=== PATIENT | male | born 1930 | race Caucasian/White ===

== ENCOUNTER 2018-08-16 09:28 | Inpatient (IN) | payer MEDICARE, BC ==
[2018-08-16 10:22] LABS: URINE APPEARANCE CLEAR; URINE BILIRUBIN NEGATIVE (NEGATIVE); URINE BLOOD TRACE-I (NEGATIVE); URINE COLOR YELLOW; URINE GLUCOSE (UA) NEGATIVE (NEGATIVE); URINE KETONE NEGATIVE (NEGATIVE); URINE LEUKOCYTE ESTERASE SMALL (NEGATIVE); URINE NITRITE NEGATIVE (NEGATIVE); URINE PROTEIN NEGATIVE (NEGATIVE); URINE UROBILINOGEN 0.2 E.U./dL (0.20 - 1.00)
[2018-08-16 10:23] LABS: HEMATOCRIT 49.3 % (42.0-52.0); HEMOGLOBIN 15.8 gm/dl (14.0-18.0); MEAN CELL VOLUME 91.1 fl (81-97); MEAN CORPUSCULAR HEMOGLOBIN 29.2 pg (27-33); MEAN PLATELET VOLUME 10.9 fl (7.4-10.4); PLATELET COUNT 311 K/uL (130-400); RED BLOOD COUNT 5.41 M/uL (4.40-5.70); RED CELL DISTRIBUTION WIDTH 13.6 % (11.5-14.5); WHITE BLOOD COUNT W/O DIFF 11.3 K/uL (4.2-12.2)
[2018-08-16 10:35] LABS: BLOOD UREA NITROGEN 15 mg/dL (8-23); CREATININE 1.2 mg/dL (0.7-1.2); EST GLOMERULAR FILTRATION RATE > 60 mL/min
[2018-08-16 10:36] LABS: TOTAL PROTEIN 7.4 g/dL (6.6-8.7)
[2018-08-16 10:38] LABS: GLUCOSE,RANDOM 157 mg/dL (74-109)
[2018-08-16 10:39] LABS: URINE BACTERIA 2+; URINE EPITHELIAL CELLS 0 - 2 (FEW); URINE MUCUS LIGHT
[2018-08-16 10:40] LABS: ALT/SGPT < 5 U/L (<41); AST/SGOT 16 U/L (10.0-50.0)
[2018-08-16 10:41] LABS: ALB/GLOB RATIO 1.4 (1.1-1.8); ALBUMIN 4.3 g/dL (4.0-5.0); ALKALINE PHOSPHATASE 100 U/L (40-129)
[2018-08-16 10:55] LABS: THYROID STIMULATING HORMONE 0.59 uIU/mL (0.270-4.20)
[2018-08-16 11:02] LABS: DIGOXIN 0.6 ng/mL (0.8-2.0)
--- NOTE | 2018-08-16 11:09 | Emergency Department Record ---
History of Present Illness - General Chief Complaint: Syncope Stated Complaint: SYNCOPE Time Seen by Provider: 08/16/18 09:33 Source: Patient, EMS Mode of Arrival: EMS Limitations: Altered mental status - History of Present Illness Initial Comments: pt became unresponsive for approx 45 secs after eating and appeared to not be breathing. he then aroused and apeeared normal. no postictal period. pt has no complaints MD Complaint: Loss of consciousness Onset/Timin -: Minutes(s) Prodromal Symptoms: None Description of Event: Focal shaking, Lost pulse, Stopped breathing Duration of Episode: 45 -: Second(s) Injuries Sustained Associated with Event: None Current Symptoms: Abdominal pain, Weakness History: Previous syncopal episode Treatments Prior to Arrival: IV fluids - Mary Coma Scale Eye Response: (4) Open spontaneously Motor Response: (6) Obeys commands Verbal Response: (5) Oriented Mary Total: 15 - Related Data Home Medications Medication Instructions Recorded Confirmed Last Taken Acetaminophen [Tylenol] 325 mg PO QID PRN 08/16/18 08/16/18 2 Days Ago ~08/14/18 Apixaban [Eliquis] 2.5 mg PO BID 08/16/18 08/16/18 1 Day Ago ~08/15/18 Aspirin [Aspirin EC] 81 mg PO DAILY 08/16/18 08/16/18 1 Day Ago ~08/15/18 Calcium Carbonate [[id number]] 500 mg PO QID 08/16/18 08/16/18 1 Day Ago ~08/15/18 Carbidopa/Levodopa [Carbidopa-Levo 2 tab PO QID 08/16/18 08/16/18 1 Day Ago 25-100 mg Odt] ~08/15/18 Carbidopa/Levodopa [Sinemet Cr 1 each PO QPM 08/16/18 08/16/18 1 Day Ago 50-200 Tablet] ~08/15/18 Chlorhexidine Gluconate [Peridex] 480 ml MM BID 08/16/18 08/16/18 1 Day Ago ~08/15/18 Cholecalciferol (Vitamin D3) 2,000 unit PO DAILY 08/16/18 08/16/18 1 Day Ago [Vitamin D3] ~08/15/18 Digoxin 125 mcg PO DAILY 08/16/18 08/16/18 1 Day Ago ~08/15/18 Finasteride [Proscar] 5 mg PO DAILY 08/16/18 08/16/18 1 Day Ago ~08/15/18 Gnp Dairy 3000 3,000 unit PO QHS PRN 08/16/18 Unknown Guaifenesin/Dextromethorphan 118 ml PO QID PRN 08/16/18 08/16/18 Unknown [Robafen Dm Cough Liquid] Guaifenesin/Dextromethorphan 237 ml PO QID PRN 08/16/18 08/16/18 Unknown [Robitussin Cough-Chest Dm Liq] Hydrocortisone [Cortisone] 28 gm TP BID PRN 08/16/18 08/16/18 Unknown Hydroxyzine HCl 25 mg PO TID PRN 08/16/18 08/16/18 Unknown Lactobacillus Acidophilus 1 each PO BID 08/16/18 08/16/18 1 Day Ago [Acidophilus] ~08/15/18 Levothyroxine Sodium [Synthroid] 1.5 tab PO DAILY 08/16/18 08/16/18 2 Days Ago ~08/14/18 Levothyroxine Sodium [Synthroid] 175 mcg PO DAILY 08/16/18 08/16/18 1 Day Ago ~08/15/18 Loperamide HCl [Immodium] 2 mg PO QID PRN 08/16/18 08/16/18 Unknown Loperamide HCl [Loperamide] 2 mg PO QID PRN 08/16/18 08/16/18 1 Day Ago ~08/15/18 Lubiprostone [Amitiza] 8 mcg PO BID 08/16/18 08/16/18 1 Day Ago ~08/15/18 Magnesium Citrate [Citrate of 296 ml PO NOW 08/16/18 08/16/18 Unknown Magnesia] Magnesium Oxide [Magnesium] 250 mg PO DAILY 08/16/18 08/16/18 1 Day Ago ~08/15/18 Mirtazapine 15 mg PO QHS 08/16/18 08/16/18 1 Day Ago ~08/15/18 Nystatin [Nystop] 60 gm TP BID 08/16/18 08/16/18 1 Day Ago ~08/15/18 Oxymetazoline HCl [Nasal [place]] 30 ml NS BID PRN 08/16/18 08/16/18 1 Day Ago ~08/15/18 Petrolatum,White [Remedy with 113 gm TP DAILY 08/16/18 08/16/18 1 Day Ago Phytoplex Z-Guard] ~08/15/18 Polyethylene Glycol 3350 [Miralax] 1 packet PO DAILY 08/16/18 08/16/18 1 Day Ago ~08/15/18 Polyethylene Glycol 3350 [Miralax] 17 gm PO DAILY PRN 08/16/18 08/16/18 Unknown Potassium Chloride [Klor-Con] 10 meq PO DAILY 08/16/18 08/16/18 1 Day Ago ~08/15/18 Psyllium Husk (with Sugar) 3.4 gm PO DAILY 08/16/18 08/16/18 1 Day Ago [Metamucil Packet] ~08/15/18 Selenium Sulfide 180 ml TP DAILY PRN 08/16/18 08/16/18 Unknown Simethicone [Gas Relief] 80 mg PO QID 08/16/18 08/16/18 1 Day Ago ~08/15/18 Tizanidine HCl [Zanaflex] 2 mg PO QID PRN 08/16/18 08/16/18 1 Day Ago ~08/15/18 Zinc Oxide/Petrolatum,White 99 gm TP BID 08/16/18 08/16/18 1 Day Ago [[place] Moist Barrier Cream] ~08/15/18 Allergies Allergy/AdvReac Type Severity Reaction Status Date / Time No Known Drug Allergies Allergy Verified 11/10/14 21:52 Travel Screening - Travel/Exposure Within Last 30 Days Have you traveled within the last 30 days?: No - Travel/Exposure Within Last Year Have you traveled outside the [place] in the last year?: No - Additonal Travel Details Have you been exposed to anyone with a communicable illness?: No - Travel Symptoms Symptom Screening: None Review of Systems Reviewed: No additional complaints except as noted below Constitutional: Reports: As per HPI. Denies: Chills, Fever, Malaise, Night sweats, Weakness, Weight change Eyes: Reports: As per HPI. Denies: Eye discharge, Eye pain, Photophobia, Vision change ENT: Reports: As per HPI. Denies: Congestion, Dental pain, Ear pain, Epistaxis , Hearing loss, Throat pain Respiratory: Reports: As per HPI. Denies: Cough, Dyspnea, Hemoptysis, Stridor, Wheezes Cardiovascular: Reports: As per HPI. Denies: Arrhythmia, Chest pain, Dyspnea on exertion, Edema, Murmurs, Orthopnea, Palpitations, Paroxysmal nocturnal dyspnea, Rheumatic Fever, Syncope Endocrine: Reports: As per HPI. Denies: Fatigue, Heat or cold intolerance, Polydipsia, Polyuria Gastrointestinal: Reports: As per HPI. Denies: Abdominal pain, Constipation, Diarrhea, Hematemesis, Hematochezia, Melena, Nausea, Vomiting Genitourinary: Reports: As per HPI. Denies: Dysuria, Frequency, Hematuria, Incontinence, Retention, Testicular pain, Testicular mass, Urgency Musculoskeletal: Reports: As per HPI. Denies: Arthralgia, Back pain, Gout, Joint swelling, Myalgia, Neck pain Skin: Reports: As per HPI. Denies: Bruising, Change in color, Change in hair/ nails, Lesions, Pruritus, Rash Neurological: Reports: As per HPI. Denies: Abnormal gait, Confusion, Headache, Numbness, Paresthesias, Seizure, Tingling, Tremors, Vertigo, Weakness Psychiatric: Reports: As per HPI. Denies: Anxiety, Auditory hallucinations, Depression, Homicidal thoughts, Suicidal thoughts, Visual hallucinations Hematological/Lymphatic: Reports: As per HPI. 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 - ENDOCRINE Hx Endocrine Disorders: Yes Hx Thyroid Disease: Yes (thyroidectomy) - MUSCULOSKELETAL Hx Musculoskeletal Disorders: No Family Medical History Any Significant Family History?: Yes Hx Cancer: Father, Mother, Grandparents Hx Heart Disease: Mother Hx Stroke: Mother Physical Exam - General General Appearance: Alert, Oriented x3, Cooperative, Mild distress - Head Head exam: Normal inspection - Eye Eye exam: Normal appearance, PERRL, EOMI Pupils: Normal accommodation - ENT ENT exam: Normal exam, Mucous membranes moist, Normal external ear exam, Normal orophraynx Ear exam: Normal external inspection. negative: External canal tenderness Nasal Exam: Normal inspection. negative: Discharge, Sinus tenderness Mouth exam: Normal external inspection, Tongue normal Teeth exam: Normal inspection. negative: Dental caries Throat exam: Normal inspection. negative: Tonsillar erythema, Tonsillar exudate - Neck Neck exam: Normal inspection, Full ROM. negative: Tenderness - Respiratory Respiratory exam: Normal lung sounds bilaterally. negative: Respiratory distress - Cardiovascular Cardiovascular Exam: Regular rate, Normal rhythm, Normal heart sounds - GI/Abdominal GI/Abdominal exam: Soft, Normal bowel sounds. negative: Tenderness - Rectal Rectal exam: Deferred - exam: Deferred - Extremities Extremities exam: Normal inspection, Full ROM, Normal capillary refill. negative: Tenderness - Back Back exam: Reports: Normal inspection, Full ROM. 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 negative: Normal gait - Psychiatric Psychiatric exam: Normal affect, Normal mood - Skin Skin exam: Dry, Intact, Normal color, Warm Course Vital Signs 08/16/18 09:33 Temperature 97.7 F Pulse Rate 77 Respiratory 18 Rate Blood Pressure 112/71 Pulse Ox 96 Medical Decision Making - Lab Data Result diagrams: 08/16/18 09:10 08/16/18 09:10 Lab Results 08/16/18 08/16/18 08/16/18 Range/Units 09:10 09:10 09:10 WBC 11.3 (4.2-12.2) K/uL RBC 5.41 (4.40-5.70) M/uL Hgb 15.8 (14.0-18.0) gm/dl Hct 49.3 (42.0-52.0) % MCV 91.1 (81-97) fl MCH 29.2 (27-33) pg MCHC 32.0 (32-36) g/dl RDW 13.6 (11.5-14.5) % Plt Count 311 (130-400) K/uL MPV 10.9 H (7.4-10.4) fl Eosinophils % Not Reportable Basophils % Not Reportable Sodium 142 (136-145) mmol/L Potassium 4.4 (3.4-4.5) mmol/L Chloride 96 L (98-107) mmol/L Carbon Dioxide 34.0 H (22-29) mmol/L Anion Gap 12.0 (7-16) BUN 15 (8-23) mg/dL Creatinine 1.2 (0.7-1.2) mg/dL Estimated GFR > 60 mL/min Random Glucose 157 H (74-109) mg/dL Calcium 8.2 L (8.8-10.2) mg/dL Total Bilirubin 0.60 (0.2-1.0) mg/dL AST 16 (10.0-50.0) U/L ALT < 5 (<41) U/L Alkaline Phosphatase 100 (40-129) U/L Total Protein 7.4 (6.6-8.7) g/dL Albumin 4.3 (4.0-5.0) g/dL Globulin 3.1 (1.4-4.8) gm/dL Albumin/Globulin Ratio 1.4 (1.1-1.8) TSH 0.59 (0.270-4.20) uIU/mL Urine Color Urine Appearance Urine pH (5.0-8.0) Ur Specific [place] (1.002-1.030) Urine Protein (NEGATIVE) Urine Glucose (UA) (NEGATIVE) Urine Ketones (NEGATIVE) Urine Blood (NEGATIVE) Urine Nitrite (NEGATIVE) Urine Bilirubin (NEGATIVE) Urine Urobilinogen (0.20 - 1.00) E.U./dL Ur Leukocyte Esterase (NEGATIVE) Urine RBC (NONE SEEN) Urine WBC (0-2/hpf) Ur Epithelial Cells (FEW) Urine Bacteria Urine Mucus Digoxin 0.6 L (0.8-2.0) ng/mL 08/16/18 Range/Units Unknown WBC (4.2-12.2) K/uL RBC (4.40-5.70) M/uL Hgb (14.0-18.0) gm/dl Hct (42.0-52.0) % MCV (81-97) fl MCH (27-33) pg MCHC (32-36) g/dl RDW (11.5-14.5) % Plt Count (130-400) K/uL MPV (7.4-10.4) fl Eosinophils % Basophils % Sodium (136-145) mmol/L Potassium (3.4-4.5) mmol/L Chloride (98-107) mmol/L Carbon Dioxide (22-29) mmol/L Anion Gap (7-16) BUN (8-23) mg/dL Creatinine (0.7-1.2) mg/dL Estimated GFR mL/min Random Glucose (74-109) mg/dL Calcium (8.8-10.2) mg/dL Total Bilirubin (0.2-1.0) mg/dL AST (10.0-50.0) U/L ALT (<41) U/L Alkaline Phosphatase (40-129) U/L Total Protein (6.6-8.7) g/dL Albumin (4.0-5.0) g/dL Globulin (1.4-4.8) gm/dL Albumin/Globulin Ratio (1.1-1.8) TSH (0.270-4.20) uIU/mL Urine Color Yellow Urine Appearance Clear Urine pH 6.0 (5.0-8.0) Ur Specific [place] 1.015 (1.002-1.030) Urine Protein Negative (NEGATIVE) Urine Glucose (UA) Negative (NEGATIVE) Urine Ketones Negative (NEGATIVE) Urine Blood Trace-i (NEGATIVE) Urine Nitrite Negative (NEGATIVE) Urine Bilirubin Negative (NEGATIVE) Urine Urobilinogen 0.2 (0.20 - 1.00) E.U./dL Ur Leukocyte Esterase Small H (NEGATIVE) Urine RBC 3 - 6 (NONE SEEN) Urine WBC 10 - 15 (0-2/hpf) Ur Epithelial Cells 0 - 2 (FEW) Urine Bacteria 2+ Urine Mucus Light Digoxin (0.8-2.0) ng/mL Disposition Disposition: Admit Clinical Impression: Syncope Qualifiers: Syncope type: unspecified Qualified Code(s): R55 - Syncope and collapse Disposition: Still a Patient at [facility] Decision to Admit: Admit from ER Decision to Admit Date: 08/16/18 Decision to Admit Time: 14:36 Forms: Patient Portal Access Quality - Quality Measures Quality Measures: N/A - Blood Pressure Screening Does Patient Have Any of the Following: No Blood Pressure Classification: Normal BP Reading Systolic Measurement: 112 Diastolic Measurement: 71 Screening for High Blood Pressure: < Normal BP, F/U Not Required > [G8783]
[2018-08-16] MEDS ORDERED: MAGNESIUM CITRATE 296 ML BTL PO SCH (15:05)
[2018-08-16] MEDS ORDERED: LOPERAMIDE 2 MG CAPSULE PO PRN ×2 (15:05)
[2018-08-16] MEDS ORDERED: HYDROXYZINE HCL 25 MG PO PRN (15:05)
[2018-08-16] MEDS ORDERED: ACETAMINOPHEN 325 MG TAB PO PRN ×2 (15:54→16:00)
[2018-08-16] MEDS: TIZANIDINE HCL 4 MG TABLET PO PRN ×2 (16:41→22:19)
[2018-08-16] MEDS: SIMETHICONE 80 MG TAB.CHEW PO SCH ×2 (18:38→21:49)
[2018-08-16] MEDS: ACETAMINOPHEN 500 MG TABLET PO PRN (18:39)
[2018-08-16] MEDS: APIXABAN 2.5MG TABLET PO SCH (21:48)
[2018-08-16] MEDS: MIRTAZAPINE 15 MG TABLET PO SCH (21:49)
[2018-08-16] MEDS ORDERED: NYSTATIN 15 GM POWDER TP SCH (22:00)
[2018-08-16] MEDS: Non-Formulary MISC (Carbidopa/Levodopa [Sinemet Cr 50-200 Tablet] 1 EACH) PO SCH (22:43)
[2018-08-16] MEDS ORDERED: CARBIDOPA PO SCH (23:00)
[2018-08-16] MEDS: [UNRECOGNIZED DRUG - OTHER] TP SCH (23:00)
[2018-08-16] MEDS ORDERED: LEVODOPA PO SCH (23:00)
[2018-08-16] MEDS: ZINC OXIDE TP SCH (23:00)
[2018-08-16] MEDS: LUBIPROSTONE 8 MCG PO SCH (23:00)
[2018-08-17] MEDS: ACETAMINOPHEN 500 MG TABLET PO PRN ×3 (02:14→21:46)
[2018-08-17 02:23] LABS: BASO % 0.3 % (0-6); EOS % 2.3 % (0-6); GRAN % 79.7 % (47-80); HEMATOCRIT 44.5 % (42.0-52.0); HEMOGLOBIN 14.2 gm/dl (14.0-18.0); LYMPH % 7.7 % (16-45); MEAN CELL VOLUME 91.2 fl (81-97); MEAN CORPUSCULAR HEMOGLOBIN 29.1 pg (27-33); MEAN CORPUSCULAR HGB CONC 31.9 g/dl (32-36); PLATELET COUNT 265 K/uL (130-400); RED BLOOD COUNT 4.88 M/uL (4.40-5.70); RED CELL DISTRIBUTION WIDTH 13.6 % (11.5-14.5); WHITE BLOOD COUNT W/O DIFF 10.8 K/uL (4.2-12.2)
[2018-08-17 02:48] LABS: ALB/GLOB RATIO 1.4 (1.1-1.8); BLOOD UREA NITROGEN 22 mg/dL (8-23); CREATININE 1.2 mg/dL (0.7-1.2); EST GLOMERULAR FILTRATION RATE > 60 mL/min; GLUCOSE,RANDOM 127 mg/dL (74-109); TOTAL PROTEIN 6.9 g/dL (6.6-8.7)
[2018-08-17 02:49] LABS: ALKALINE PHOSPHATASE 90 U/L (40-129); ALT/SGPT < 5 U/L (<41); AST/SGOT 15 U/L (10.0-50.0)
--- NOTE | 2018-08-17 07:32 | CT SCAN REPORT ---
EXAM: CT SCAN OF THE BRAIN WITHOUT CONTRAST HISTORY: SYNCOPE. UNRESPONSIVE EPISODE TODAY AFTER BREAKFAST. SIMILAR SYMPTOMS SIX DAYS AGO. HISTORY OF PREVIOUS INTRACRANIAL BLEED IN 2009. TECHNIQUE: Standard CT imaging of the brain was performed without contrast. Comparison: 11/08/13. Encounter: Not applicable. FINDINGS: There is moderate generalized atrophy. The ventricles and subarachnoid spaces are otherwise normal. A focal area of encephalomalacia is noted within the superior right frontal parietal region and is unchanged. Chronic small vessel ischemic changes are present within the periventricular and subcortical white matter of both cerebral hemispheres. There is no mass, mass effect, intracranial hemorrhage, visible acute infarct, or abnormal extraaxial fluid. The skull is intact. The orbits, sinuses, and mastoids are normal. IMPRESSION: 1. STABLE HEAD CT WITH NO ACUTE INTRACRANIAL ABNORMALITY. 2. MODERATE ATROPHY AND CHRONIC SMALL VESSEL ISCHEMIC CHANGES. 3. 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 JOB NUMBER: [id number] MTDD
[2018-08-17] MEDS ORDERED: SODIUM CHLORIDE NASAL SPRAY PRN (08:24)
[2018-08-17] MEDS ORDERED: SODIUM CHLORIDE NASAL SPRAY ONE (08:27)
[2018-08-17] MEDS ORDERED: GUAIFENESIN/D-METH. 10 ML UDC PO PRN (09:30)
[2018-08-17] MEDS ORDERED: HYDROCORTISONE HC CR 28.35 GM TUBE TOP PRN (09:30)
[2018-08-17] MEDS: ASPIRIN 81 MG TABEC PO SCH (09:44)
[2018-08-17] MEDS: APIXABAN 2.5MG TABLET PO SCH ×2 (09:44→21:47)
[2018-08-17] MEDS: POTASSIUM CHLORIDE 10 MEQ TAB PO SCH ×2 (09:45→17:03)
[2018-08-17] MEDS: Non-Formulary MISC (Finasteride [Proscar] 5 MG) PO SCH (09:45)
[2018-08-17] MEDS: DIGOXIN 125 MCG TABLET PO SCH (09:46)
[2018-08-17] MEDS: LUBIPROSTONE 8 MCG PO SCH ×2 (09:47→21:50)
[2018-08-17] MEDS: POLYETHYLENE GLY 17 GM PACKET PO SCH (09:47)
[2018-08-17] MEDS: MAGNESIUM OXIDE 250 MG PO SCH (09:52)
[2018-08-17] MEDS: TIZANIDINE HCL 4 MG TABLET PO PRN ×2 (09:53→21:48)
[2018-08-17] MEDS ORDERED: LEVOTHYROXINE 175 MCG PO ONE (10:00)
[2018-08-17] MEDS: CARBIDOPA/LEVODOPA 25MG/100MG TABLET PO SCH ×4 (10:45→21:46)
[2018-08-17] MEDS: SIMETHICONE 80 MG TAB.CHEW PO SCH ×4 (10:45→21:47)
--- NOTE | 2018-08-17 11:27 | History & Physical ---
History of Present Illness - Date of Service Date of Service for History & Physical: 08/17/18 - History of Present Illness Admitting Diagnosis: syncope History of Present Illness: 88 year old male presented to ED after a syncopal episode that occurred at the [facility] where he currently resides. 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 Patient reports he had finished eating breakfast and was being wheeled to the activity room when he lost consciousness. Staff report patient was also not breathing during episode, and state it lasted about 45 sec - 1 min. The episode was witnessed and staff deny any seizure-like activity, incontinence, or a post-ictal state afterward. Patient denied any feelings of shortness of breath, chest pain, dizziness, or generalized feelings of being unwell prior to episode. Patient had one previous episode similar to this last Friday. He was taken to [facility] after that event and was found to have a UTI. Patient was started on Cipro at that time. Patient's past medical history includes Parkinson's, a-fib, CVA, and thyroidectomy. Neurologist at [facility] [place] at [facility] PCP: Fernando Kearney ED Course: VS: Temp 97.7F, HR 77, RR 18, BP 112/71, Pulse ox 96% CBC WNL, CMP and TSH WNL Head CT negative for acute process UA had small leuks, will continue Cipro 08/17/18: Patient A&O x 4, resting comfortably in bed. Patient has no complaints this morning, states he is feeling at his baseline. Will continue to treat with Cipro for UTI. Echo ordered, last echo reported in 2001. Cardiology consult also placed to further evaluate syncopal episodes. If workup remains negative, will instruct patient to follow-up with neurologist for further testing. Travel Screening - Travel/Exposure Within Last 30 Days Have you traveled within the last 30 days?: No - Travel/Exposure Within Last Year Have you traveled outside the [place] in the last year?: No - Additonal Travel Details Have you been exposed to anyone with a communicable illness?: No - Travel Symptoms Symptom Screening: None Review of Systems Constitutional: Reports: As per HPI. Denies: Chills, Fever, Malaise, Night sweats, Weakness, Weight change Eyes: Reports: As per HPI. Denies: Eye discharge, Eye pain, Photophobia, Vision change ENT: Reports: As per HPI. Denies: Congestion, Dental pain, Ear pain, Epistaxis , Hearing loss, Throat pain Respiratory: Reports: As per HPI. Denies: Cough, Dyspnea, Hemoptysis, Stridor, Wheezes Cardiovascular: Reports: As per HPI. Denies: Arrhythmia, Chest pain, Dyspnea on exertion, Edema, Murmurs, Orthopnea, Palpitations, Paroxysmal nocturnal dyspnea, Rheumatic Fever, Syncope Endocrine: Reports: As per HPI. Denies: Fatigue, Heat or cold intolerance, Polydipsia, Polyuria Gastrointestinal: Reports: As per HPI. Denies: Abdominal pain, Constipation, Diarrhea, Hematemesis, Hematochezia, Melena, Nausea, Vomiting Genitourinary: Reports: As per HPI. Denies: Dysuria, Frequency, Hematuria, Incontinence, Retention, Testicular pain, Testicular mass, Urgency Musculoskeletal: Reports: As per HPI. Denies: Arthralgia, Back pain, Gout, Joint swelling, Myalgia, Neck pain Skin: Reports: As per HPI. Denies: Bruising, Change in color, Change in hair/ nails, Lesions, Pruritus, Rash Neurological: Reports: As per HPI. Denies: Abnormal gait, Confusion, Headache, Numbness, Paresthesias, Seizure, Tingling, Tremors, Vertigo, Weakness Psychiatric: Reports: As per HPI. Denies: Anxiety, Auditory hallucinations, Depression, Homicidal thoughts, Suicidal thoughts, Visual hallucinations Hematological/Lymphatic: Reports: As per HPI. Denies: Anemia, Blood Clots, Easy bleeding, Easy bruising, Swollen glands Past Medical History - SOCIAL HISTORY Smoking Status: Never smoker Alcohol Use: None Drug Use: None - RESPIRATORY Hx Respiratory Disorders: No - CARDIOVASCULAR Hx Cardio Disorders: Yes Hx Hypertension: Yes Hx Irregular Heartbeat: Yes Comment:: A-fib - NEURO Hx Neuro Disorders: Yes Hx CVA: Yes (Oct 2010) Hx Parkinson's Disease: Yes (2017) - GI Hx GI Disorders: No - Hx Genitourinary Disorders: Yes Hx Bladder Problem: Yes (Suprapubic catheter) Comment:: post CVA - ENDOCRINE Hx Endocrine Disorders: Yes Hx Thyroid Disease: Yes (thyroidectomy) - MUSCULOSKELETAL Hx Musculoskeletal Disorders: No - PSYCH Hx Psych Problems: No - HEMATOLOGY/ONCOLOGY Hx Hematology/Oncology Disorders: No Family Medical History Any Significant Family History?: Yes Hx Cancer: Father, Mother, Grandparents Hx Heart Disease: Mother Hx Stroke: Mother H&P Meds/Allergies - Allergies Allergies: Allergies Allergy/AdvReac Type Severity Reaction Status Date / Time No Known Drug Allergies Allergy Verified 11/10/14 21:52 - Home Medications Home Medications Medication Instructions Recorded Confirmed Last Taken Acetaminophen [Tylenol] 325 mg PO QID PRN 08/16/18 08/16/18 2 Days Ago ~08/14/18 Apixaban [Eliquis] 2.5 mg PO BID 08/16/18 08/16/18 1 Day Ago ~08/15/18 Aspirin [Aspirin EC] 81 mg PO DAILY 08/16/18 08/16/18 1 Day Ago ~08/15/18 Calcium Carbonate [Abfp-Mcx-450] 500 mg PO QID 08/16/18 08/16/18 1 Day Ago ~08/15/18 Carbidopa/Levodopa [Carbidopa-Levo 2 tab PO QID 08/16/18 08/16/18 1 Day Ago 25-100 mg Odt] ~08/15/18 Carbidopa/Levodopa [Sinemet Cr 1 each PO QPM 08/16/18 08/16/18 1 Day Ago 50-200 Tablet] ~08/15/18 Chlorhexidine Gluconate [Peridex] 480 ml MM BID 08/16/18 08/16/18 1 Day Ago ~08/15/18 Cholecalciferol (Vitamin D3) 2,000 unit PO DAILY 08/16/18 08/16/18 1 Day Ago [Vitamin D3] ~08/15/18 Digoxin 125 mcg PO DAILY 08/16/18 08/16/18 1 Day Ago ~08/15/18 Finasteride [Proscar] 5 mg PO DAILY 08/16/18 08/16/18 1 Day Ago ~08/15/18 Gnp Dairy 3000 3,000 unit PO QHS PRN 08/16/18 Unknown Guaifenesin/Dextromethorphan 118 ml PO QID PRN 08/16/18 08/16/18 Unknown [Robafen Dm Cough Liquid] Guaifenesin/Dextromethorphan 237 ml PO QID PRN 08/16/18 08/16/18 Unknown [Robitussin Cough-Chest Dm Liq] Hydrocortisone [Cortisone] 28 gm TP BID PRN 08/16/18 08/16/18 Unknown Hydroxyzine HCl 25 mg PO TID PRN 08/16/18 08/16/18 Unknown Lactobacillus Acidophilus 1 each PO BID 08/16/18 08/16/18 1 Day Ago [Acidophilus] ~08/15/18 Levothyroxine Sodium [Synthroid] 1.5 tab PO DAILY 08/16/18 08/16/18 2 Days Ago ~08/14/18 Levothyroxine Sodium [Synthroid] 175 mcg PO DAILY 08/16/18 08/16/18 1 Day Ago ~08/15/18 Loperamide HCl [Immodium] 2 mg PO QID PRN 08/16/18 08/16/18 Unknown Loperamide HCl [Loperamide] 2 mg PO QID PRN 08/16/18 08/16/18 1 Day Ago ~08/15/18 Lubiprostone [Amitiza] 8 mcg PO BID 08/16/18 08/16/18 1 Day Ago ~08/15/18 Magnesium Citrate [Citrate of 296 ml PO NOW 08/16/18 08/16/18 Unknown Magnesia] Magnesium Oxide [Magnesium] 250 mg PO DAILY 08/16/18 08/16/18 1 Day Ago ~08/15/18 Mirtazapine 15 mg PO QHS 08/16/18 08/16/18 1 Day Ago ~08/15/18 Nystatin [Nystop] 60 gm TP BID 08/16/18 08/16/18 1 Day Ago ~08/15/18 Oxymetazoline HCl [Nasal [place]] 30 ml NS BID PRN 08/16/18 08/16/18 1 Day Ago ~08/15/18 Petrolatum,White [Remedy with 113 gm TP DAILY 08/16/18 08/16/18 1 Day Ago Phytoplex Z-Guard] ~08/15/18 Polyethylene Glycol 3350 [Miralax] 1 packet PO DAILY 08/16/18 08/16/18 1 Day Ago ~08/15/18 Polyethylene Glycol 3350 [Miralax] 17 gm PO DAILY PRN 08/16/18 08/16/18 Unknown Potassium Chloride [Klor-Con] 10 meq PO DAILY 08/16/18 08/16/18 1 Day Ago ~08/15/18 Psyllium Husk (with Sugar) 3.4 gm PO DAILY 08/16/18 08/16/18 1 Day Ago [Metamucil Packet] ~08/15/18 Selenium Sulfide 180 ml TP DAILY PRN 08/16/18 08/16/18 Unknown Simethicone [Gas Relief] 80 mg PO QID 08/16/18 08/16/18 1 Day Ago ~08/15/18 Tizanidine HCl [Zanaflex] 2 mg PO QID PRN 08/16/18 08/16/18 1 Day Ago ~08/15/18 Zinc Oxide/Petrolatum,White 99 gm TP BID 08/16/18 08/16/18 1 Day Ago [Jacob Moist Barrier Cream] ~08/15/18 - Active Medications Active Medications: Current Medications Acetaminophen (Tylenol 500mg Tab) 1,000 mg PO Q6H PRN PRN Reason: PAIN - MILD(1-4)/FEVER Last Admin: 08/17/18 10:32 Dose: 1,000 mg Acetaminophen (Tylenol 325mg) 325 mg PO Q6H PRN PRN Reason: PAIN - MILD (1-4) Apixaban (Eliquis) 2.5 mg PO BID [facility] Last Admin: 08/17/18 09:44 Dose: 2.5 mg Aspirin (Ecotrin (Ec)) 81 mg PO DAILY [facility] Last Admin: 08/17/18 09:44 Dose: 81 mg Carbidopa/Levodopa (Sinemet) 2 each PO 0800,1200,1600,2000 [facility] Last Admin: 08/17/18 09:52 Dose: 2 each Digoxin (Lanoxin) 125 mcg PO DAILY [facility] Last Admin: 08/17/18 09:46 Dose: 125 mcg Guaifenesin (Robitussin Dm) 10 ml PO QID PRN PRN Reason: COUGH Hydrocortisone (Proctosol-Hc) 1 gm TOP BID PRN PRN Reason: DIAPER RASH Loperamide HCl (Immodium) 2 mg PO QID PRN PRN Reason: DIARRHEA Magnesium Citrate (Citrate Of Magnesia) 296 ml PO NOW [facility] Mirtazapine (Remeron) 15 mg PO QHS [facility] Last Admin: 08/16/18 21:49 Dose: 15 mg Non-Formulary Medication (Carbidopa/Levodopa [Sinemet Cr 50-200 Tablet]) 1 each PO QHS [facility] Last Admin: 08/16/18 22:43 Dose: 1 each Non-Formulary Medication (Finasteride [Proscar]) 5 mg PO DAILY [facility] Last Admin: 08/17/18 09:45 Dose: 5 mg Non-Formulary Medication (Hydroxyzine Hcl [Hydroxyzine Hcl]) 25 mg PO TID PRN PRN Reason: ANXIETY Non-Formulary Medication (Lubiprostone [Amitiza]) 8 mcg PO BID [facility] Last Admin: 08/17/18 09:47 Dose: 8 mcg Non-Formulary Medication (Zinc Oxide/Petrolatum,White [[place] Moist Barrier Cream]) 99 gm TP BID [facility] Nystatin (Nystop) 1 gm TP BID [facility] Patient Own Med: Levothyroxine 175 Mcg 1 each PO SuTuThSa [facility] Patient Own Med: Levothyroxine 175 Mcg 1.5 each PO MoWeFr [facility] Patient Own Med: Magnesium Oxide 250 Mg 1 each PO DAILY [facility] Last Admin: 08/17/18 09:52 Dose: 1 each Polyethylene Glycol (Miralax) 17 gm PO DAILY [facility] Last Admin: 08/17/18 09:47 Dose: 17 gm Potassium Chloride (Klor-Con) 10 meq PO 0800,1700 [facility] Last Admin: 08/17/18 09:45 Dose: 10 meq Simethicone (Mylicon) 80 mg PO QID [facility] Last Admin: 08/17/18 09:48 Dose: 80 mg Sodium Chloride ([place] Nasal) 0.5 ml NA Q2H PRN PRN Reason: DRY NASAL PASSAGE Tizanidine HCl (Tizanidine Hcl) 2 mg PO Q6H PRN PRN Reason: RESTLESSNESS Last Admin: 08/17/18 09:53 Dose: 2 mg Physical Exam - Vital Signs Vital Signs: Vital Signs - Last 24 Hrs Temp Pulse Pulse Resp BP Pulse Ox 08/17/18 09:00 97.9 F 93 H 18 152/82 96 08/17/18 05:00 97.9 F 79 20 132/92 93 L 08/16/18 20:15 90 08/16/18 19:57 97.6 F 103 H 20 140/89 94 L 08/16/18 18:12 94 H 95 H 18 08/16/18 17:05 98.8 F 94 H 18 164/101 98 08/16/18 14:50 97.9 F 95 H 18 162/94 96 08/16/18 14:38 94 H 20 174/105 97 08/16/18 13:31 89 18 151/97 97 08/16/18 11:51 89 22 137/83 97 - General General Appearance: Alert, Oriented x3, Cooperative, No acute distress Limitations: Altered mental status - Head Head exam: Normal inspection - Eye Eye exam: Normal appearance, PERRL, EOMI Pupils: Normal accommodation - ENT ENT exam: Normal exam, Mucous membranes moist, Normal external ear exam, Normal orophraynx Ear exam: Normal external inspection. negative: External canal tenderness Nasal Exam: Normal inspection. negative: Discharge, Sinus tenderness Mouth exam: Normal external inspection, Tongue normal Teeth exam: Normal inspection. negative: Dental caries Throat exam: Normal inspection. negative: Tonsillar erythema, Tonsillar exudate - Neck Neck exam: Normal inspection, Full ROM. negative: Tenderness - Respiratory Respiratory exam: Normal lung sounds bilaterally. negative: Respiratory distress - Cardiovascular Cardiovascular Exam: Regular rate, Normal heart sounds Peripheral Pulses: 2+: Radial (R), Radial (L), Dorsalis Pedis (R), Dorsalis Pedis (L) - GI/Abdominal GI/Abdominal exam: Soft, Normal bowel sounds. negative: Tenderness - Rectal Rectal exam: Deferred - exam: Deferred, Other (suprapubic catheter) - Extremities Extremities exam: Normal inspection, Full ROM, Normal capillary refill. negative: Tenderness - Back Back exam: Reports: Normal inspection, Full ROM. Denies: Muscle spasm, Rash noted, Tenderness - Neurological Neurological exam: Alert, Oriented X3, Other (wheelchair bound 2nd to parkinsons and CVA). negative: Normal gait - Psychiatric Psychiatric exam: Normal affect, Normal mood - Skin Skin exam: Dry, Intact, Normal color, Warm Results - Labs Result Diagrams: 08/17/18 02:18 08/17/18 02:18 Labs Last 24 Hours: Laboratory Results - last 24 hr 08/16/18 08/17/18 08/17/18 18:10 02:18 02:18 WBC 10.8 RBC 4.88 Hgb 14.2 Hct 44.5 MCV 91.2 MCH 29.1 MCHC 31.9 L RDW 13.6 Plt Count 265 MPV 10.0 Gran % 79.7 Lymphocytes % 7.7 L Monocytes % 10.0 H Eosinophils % 2.3 Basophils % 0.3 Sodium Potassium Chloride Carbon Dioxide Anion Gap BUN Creatinine Estimated GFR Random Glucose Calcium Total Bilirubin AST ALT Alkaline Phosphatase Troponin T < 0.010 < 0.010 Total Protein Albumin Globulin Albumin/Globulin Ratio 08/17/18 02:18 WBC RBC Hgb Hct MCV MCH MCHC RDW Plt Count MPV Gran % Lymphocytes % Monocytes % Eosinophils % Basophils % Sodium 141 Potassium 4.1 Chloride 98 Carbon Dioxide 29.0 Anion Gap 14.0 BUN 22 Creatinine 1.2 Estimated GFR > 60 Random Glucose 127 H Calcium 7.5 L Total Bilirubin 0.50 AST 15 ALT < 5 Alkaline Phosphatase 90 Troponin T Total Protein 6.9 Albumin 4.0 Globulin 2.9 Albumin/Globulin Ratio 1.4 VTE H&P Assessment - Risk for VTE Risk for VTE: Yes Risk Level: Moderate Risk Assessment Date: 08/17/18 Risk Assessment Time: 11:32 VTE Orders Placed or Will Be Placed: No VTE Reason for No Prophylaxis: Contraindicated (currently on Eliquis for a-fib) Plan - Inpatient Certification Inpatient Certification: Admit to inpatient care: Based on my medical assessment, after consideration of patient's risk factors (age, co-morbidities and patient presenting symptoms and acuity), I expect that this patient will remain in the hospital greater than or equal to two midnights and that the services needed warrant inpatient care because: Patient Risk Factors: [age, wheelchair bound, repeated syncope] Estimated length of stay: The patient may reasonably be expected to be discharged or transferred to a hospital within 24-72 hours after admission to [facility]. Services needed: [cardiac monitoring, cardiology consult, ECHO] Post hospital care (if known): [] I certify that my determination is in accordance with my understanding of Medicare requirements for reasonable and necessary inpatient services. 08/17/18 11:33 - Detailed Diagnosis and Plan (1) Syncope Current Visit: Yes Status: Acute Qualifiers: Syncope type: unspecified Qualified Code(s): R55 - Syncope and collapse Base Code: R55 - SYNCOPE AND COLLAPSE Comment: 08/17/18: Patient has had 2 syncopal episodes in the past week. Both episodes lasting about 1 minute, staff also reported patient had stopped breathing during episode. No seizure- like movements or activity, no post-ictal state -Head CT showed no acute changes -ECHO ordered, results pending -Cardiology consult -hall monitor -CBC and CMP WNL -UA positive for small leuks, was started on Cipro last Friday, will continue -Patient to follow-up with Neurology if all other testing is WNL (2) UTI (urinary tract infection) Current Visit: Yes Status: Acute Base Code: N39.0 - URINARY TRACT INFECTION , SITE NOT SPECIFIED Comment: 08/17/18: Was found to have catheter-associated UTI at [facility] last Friday and started on Cipro. -Small Leuks noted on UA -Will continue Cipro (3) A-fib Current Visit: Yes Status: Acute Base Code: I48.91 - UNSPECIFIED ATRIAL FIBRILLATION Comment: 08/17/18: Chronic a-fib, managed by carrot buncher Shonna [place] [facility] -Eliquis 2.5mg daily -hall monitor (4) DVT prophylaxis Current Visit: Yes Status: Acute Base Code: [id number] - Comment: 08/17/18: moderate risk due to age, hospitalization, and chronic wheelchair bound status. -Will continue current Eliquis home dosing (5) Full code status Current Visit: Yes Status: Acute Base Code: Z78.9 - OTHER SPECIFIED HEALTH STATUS Comment: 08/17/18: Patient is a full code this admission
[2018-08-17] MEDS: NYSTATIN 15 GM POWDER TP SCH ×2 (14:00→22:00)
[2018-08-17] MEDS: [UNRECOGNIZED DRUG - OTHER] TP SCH ×2 (19:36→23:00)
[2018-08-17] MEDS: ZINC OXIDE TP SCH ×2 (19:36→23:00)
[2018-08-17] MEDS: MIRTAZAPINE 15 MG TABLET PO SCH (21:46)
[2018-08-17] MEDS: Non-Formulary MISC (Carbidopa/Levodopa [Sinemet Cr 50-200 Tablet] 1 EACH) PO SCH (21:50)
[2018-08-18] MEDS: TIZANIDINE HCL 4 MG TABLET PO PRN (03:53)
[2018-08-18] MEDS ORDERED: LEVOTHYROXINE 175 MCG PO SCH (07:00)
[2018-08-18 07:01] LABS: BASO % 0.3 % (0-6); EOS % 2.4 % (0-6); GRAN % 78.6 % (47-80); HEMATOCRIT 45.5 % (42.0-52.0); HEMOGLOBIN 14.4 gm/dl (14.0-18.0); LYMPH % 9.8 % (16-45); MEAN CELL VOLUME 91.2 fl (81-97); MEAN CORPUSCULAR HEMOGLOBIN 28.9 pg (27-33); MEAN CORPUSCULAR HGB CONC 31.6 g/dl (32-36); MEAN PLATELET VOLUME 10.4 fl (7.4-10.4); MONO % 8.9 % (0-9); PLATELET COUNT 253 K/uL (130-400); RED BLOOD COUNT 4.99 M/uL (4.40-5.70); RED CELL DISTRIBUTION WIDTH 13.7 % (11.5-14.5); WHITE BLOOD COUNT W/O DIFF 7.9 K/uL (4.2-12.2)
[2018-08-18 07:26] LABS: ALB/GLOB RATIO 1.5 (1.1-1.8); ALBUMIN 3.9 g/dL (4.0-5.0); ALKALINE PHOSPHATASE 84 U/L (40-129); ALT/SGPT < 5 U/L (<41); AST/SGOT 12 U/L (10.0-50.0); BLOOD UREA NITROGEN 20 mg/dL (8-23); EST GLOMERULAR FILTRATION RATE > 60 mL/min; GLUCOSE,RANDOM 108 mg/dL (74-109); TOTAL PROTEIN 6.5 g/dL (6.6-8.7)
--- NOTE | 2018-08-18 07:37 | Physician Progress Note ---
Subjective - Date Date of Physician Progress Note: 08/18/18 - Subjective Subjective Comment: The patient is awake, alert and oriented. He says that he had a comfortable night without any new symptoms. There is no report of syncopal episode, cardiac or neurological event. On examination the patient has notable left upper/lower ext motor and sensory deficits due to CVA a few years ago. The patient also notes that he most recently had changes made to his heart medicine but is not sure of what those changes were. Objective - Vital Signs Vital Signs: Vital Signs - Last 24 Hrs Temp Pulse Resp BP BP BP Pulse Ox 08/18/18 04:33 98.0 F 79 20 138/74 94 L 08/17/18 21:00 98.1 F 89 20 156/103 96 08/17/18 20:00 90 08/17/18 17:00 97.9 F 90 90 H 143/80 95 08/17/18 16:04 97.9 F 152/82 08/17/18 13:00 97.9 F 88 16 105/53 94 L 08/17/18 09:00 97.9 F 93 H 18 152/82 96 08/17/18 08:00 93 H 16 - General General Appearance: Alert, Oriented x3, Cooperative, No acute distress Limitations: Altered mental status - Head Head exam: Normal inspection - Eye Eye exam: Normal appearance, PERRL, EOMI Pupils: Normal accommodation - ENT ENT exam: Normal exam, Mucous membranes moist, Normal external ear exam, Normal orophraynx Ear exam: Normal external inspection. negative: External canal tenderness Nasal Exam: Normal inspection. negative: Discharge, Sinus tenderness Mouth exam: Normal external inspection, Tongue normal Teeth exam: Normal inspection. negative: Dental caries Throat exam: Normal inspection. negative: Tonsillar erythema, Tonsillar exudate - Neck Neck exam: Normal inspection, Full ROM. negative: Tenderness - Respiratory Respiratory exam: Normal lung sounds bilaterally. negative: Respiratory distress - Cardiovascular Cardiovascular Exam: Regular rate, Normal heart sounds Peripheral Pulses: 2+: Radial (R), Radial (L), Dorsalis Pedis (R), Dorsalis Pedis (L) - GI/Abdominal GI/Abdominal exam: Soft, Normal bowel sounds. negative: Tenderness - Rectal Rectal exam: Deferred - exam: Deferred, Other (suprapubic catheter) - Extremities Extremities exam: Normal inspection, Full ROM, Normal capillary refill. negative: Tenderness - Back Back exam: Reports: Normal inspection, Full ROM. 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 negative: Normal gait - Psychiatric Psychiatric exam: Normal affect, Normal mood - Skin Skin exam: Dry, Intact, Normal color, Warm Assessment and Plan - Inpatient Certification Inpatient Certification: The patient has history of CVA x 2, A fib and Parkinson's. He has limited mobility as a result of the aforementioned conditions and there is concern that his new presentation may be a manifestation of one or all of these conditions. Inpatient monitoring would be appropriate for at least 48 hours. 08/18/18 17:41 08/18/18 17:53 - Assessment and Plan (1) Syncope Current Visit: Yes Status: Acute Qualifiers: Syncope type: unspecified Qualified Code(s): R55 - Syncope and collapse Base Code: R55 - SYNCOPE AND COLLAPSE Comment: 08/18/18: - Syncopal episodes x 2, time not determined. - No seizure-like movements or activity, no post-ictal confusion noted. - Head CT w/o contrast on admission - showed no acute changes, no acute changes on telemetry monitoring. - ECHO ordered, results pending, Cardiology consult - Patient to follow-up with Neurology if all other testing is WNL (2) A-fib Current Visit: Yes Status: Acute Base Code: I48.91 - UNSPECIFIED ATRIAL FIBRILLATION Comment: 08/18/18: Chronic a-fib, managed by rocket engine component mechanic Shonna at [facility] - Rate controlled on Digoxing 125mcg daily, Anticoagulated on Eliquis 2.5mg daily - panel monitor, no new acute changes noted. - Pending Cardiology consult. (3) Parkinson disease Current Visit: Yes Status: Acute Base Code: G20 - PARKINSON'S DISEASE Comment: 08/18/18: - On Carbidopa/Levadopa - Follow up with [facility]rology on discharge. (4) DVT prophylaxis Current Visit: Yes Status: Acute Base Code: [id number] - Comment: 08/18/18: moderate risk due to age, hospitalization, and chronic wheelchair bound status. -Will continue current Eliquis home dosing (5) Full code status Current Visit: Yes Status: Acute Base Code: Z78.9 - OTHER SPECIFIED HEALTH STATUS Comment: 08/18/18: Patient is a full code this admission - Disposition Disposition: Cardiology Consult pending. Likely D/C tomorrow once seen by Cardiology. Results - Labs Result Diagrams: 08/18/18 06:23 08/18/18 06:23 Labs Last 24 Hours: Laboratory Results - last 24 hr 08/18/18 08/18/18 06:23 06:23 WBC 7.9 RBC 4.99 Hgb 14.4 Hct 45.5 MCV 91.2 MCH 28.9 MCHC 31.6 L RDW 13.7 Plt Count 253 MPV 10.4 Gran % 78.6 Lymphocytes % 9.8 L Monocytes % 8.9 Eosinophils % 2.4 Basophils % 0.3 Sodium 141 Potassium 4.1 Chloride 98 Carbon Dioxide 30.0 H Anion Gap 13.0 BUN 20 Creatinine 1.0 Estimated GFR > 60 Random Glucose 108 Calcium 6.8 L Total Bilirubin 0.50 AST 12 ALT < 5 Alkaline Phosphatase 84 Total Protein 6.5 L Albumin 3.9 L Globulin 2.6 Albumin/Globulin Ratio 1.5 DVT/PE Assessment - Risk for VTE Risk for VTE: No Risk Level: Moderate Risk Assessment Date: 08/17/18 Risk Assessment Time: 11:32 VTE Orders Placed or Will Be Placed: No VTE Reason for No Prophylaxis: Contraindicated (currently on Eliquis for a-fib) - Active Medicaitons Current Medications: Current Medications Acetaminophen (Tylenol 500mg Tab) 1,000 mg PO Q6H PRN PRN Reason: PAIN - MILD(1-4)/FEVER Last Admin: 08/17/18 21:46 Dose: 1,000 mg Acetaminophen (Tylenol 325mg) 325 mg PO Q6H PRN PRN Reason: PAIN - MILD (1-4) Apixaban (Eliquis) 2.5 mg PO BID [facility] Last Admin: 08/17/18 21:47 Dose: 2.5 mg Aspirin (Ecotrin (Ec)) 81 mg PO DAILY [facility] Last Admin: 08/17/18 09:44 Dose: 81 mg Carbidopa/Levodopa (Sinemet) 2 each PO 0800,1200,1600,2000 [facility] Last Admin: 08/17/18 21:46 Dose: 2 each Digoxin (Lanoxin) 125 mcg PO DAILY [facility] Last Admin: 08/17/18 09:46 Dose: 125 mcg Guaifenesin (Robitussin Dm) 10 ml PO QID PRN PRN Reason: COUGH Last Admin: 08/17/18 21:49 Dose: 10 ml Hydrocortisone (Proctosol-Hc) 1 gm TOP BID PRN PRN Reason: DIAPER RASH Loperamide HCl (Immodium) 2 mg PO QID PRN PRN Reason: DIARRHEA Last Admin: 08/18/18 04:00 Dose: 2 mg Magnesium Citrate (Citrate Of Magnesia) 296 ml PO NOW [facility] Mirtazapine (Remeron) 15 mg PO QHS [facility] Last Admin: 08/17/18 21:46 Dose: 15 mg Non-Formulary Medication (Carbidopa/Levodopa [Sinemet Cr 50-200 Tablet]) 1 each PO QHS [facility] Last Admin: 08/17/18 21:50 Dose: 1 each Non-Formulary Medication (Finasteride [Proscar]) 5 mg PO DAILY [facility] Last Admin: 08/17/18 09:45 Dose: 5 mg Non-Formulary Medication (Hydroxyzine Hcl [Hydroxyzine Hcl]) 25 mg PO TID PRN PRN Reason: ANXIETY Non-Formulary Medication (Lubiprostone [Amitiza]) 8 mcg PO BID [facility] Last Admin: 08/17/18 21:50 Dose: 8 mcg Non-Formulary Medication (Zinc Oxide/Petrolatum,White [Jacob Moist Barrier Cream]) 99 gm TP BID [facility] Last Admin: 08/17/18 23:00 Dose: Not Given Nystatin (Nystop) 1 gm TP BID [facility] Last Admin: 08/17/18 22:00 Dose: 1 gm Patient Own Med: Levothyroxine 175 Mcg 1 each PO SuTuThSa [facility] Patient Own Med: Levothyroxine 175 Mcg 1.5 each PO MoWeFr [facility] Patient Own Med: Magnesium Oxide 250 Mg 1 each PO DAILY [facility] Last Admin: 08/17/18 09:52 Dose: 1 each Polyethylene Glycol (Miralax) 17 gm PO DAILY [facility] Last Admin: 08/17/18 09:47 Dose: 17 gm Potassium Chloride (Klor-Con) 10 meq PO 0800,1700 [facility] Last Admin: 08/17/18 17:03 Dose: 10 meq Simethicone (Mylicon) 80 mg PO QID [facility] Last Admin: 08/17/18 21:47 Dose: 80 mg Sodium Chloride ([place] Nasal) 0.5 ml NA Q2H PRN PRN Reason: DRY NASAL PASSAGE Tizanidine HCl (Tizanidine Hcl) 2 mg PO Q6H PRN PRN Reason: RESTLESSNESS Last Admin: 08/18/18 03:53 Dose: 2 mg AMI Plan - Labs Result Diagrams: 08/18/18 06:23 08/18/18 06:23
[2018-08-18] MEDS: POTASSIUM CHLORIDE 10 MEQ TAB PO SCH ×2 (07:49→17:28)
[2018-08-18] MEDS: CARBIDOPA/LEVODOPA 25MG/100MG TABLET PO SCH ×4 (07:49→20:31)
[2018-08-18] MEDS: ASPIRIN 81 MG TABEC PO SCH (10:47)
[2018-08-18] MEDS: SIMETHICONE 80 MG TAB.CHEW PO SCH ×4 (10:47→21:44)
[2018-08-18] MEDS: DIGOXIN 125 MCG TABLET PO SCH (10:47)
[2018-08-18] MEDS: ZINC OXIDE TP SCH ×2 (10:48→21:49)
[2018-08-18] MEDS: Non-Formulary MISC (Finasteride [Proscar] 5 MG) PO SCH (10:48)
[2018-08-18] MEDS: APIXABAN 2.5MG TABLET PO SCH ×2 (10:48→21:43)
[2018-08-18] MEDS: MAGNESIUM OXIDE 250 MG PO SCH (10:48)
[2018-08-18] MEDS: [UNRECOGNIZED DRUG - OTHER] TP SCH ×2 (10:48→21:49)
[2018-08-18] MEDS: POLYETHYLENE GLY 17 GM PACKET PO SCH (10:48)
[2018-08-18] MEDS: LUBIPROSTONE 8 MCG PO SCH ×2 (10:48→21:45)
[2018-08-18] MEDS: NYSTATIN 15 GM POWDER TP SCH ×2 (10:48→21:49)
[2018-08-18] MEDS ORDERED: ZINC OXIDE 28.35 GM TUBE TOP ONE (11:37)
--- NOTE | 2018-08-18 21:15 | Cardiology Consult ---
DATE OF CONSULTATION: 08/17/2018 REASON FOR CONSULT: SYNCOPE. HISTORY OF PRESENT ILLNESS: This is a pleasant 88-year-old man who presented to the Emergency Department after a syncopal episode that occurred at the [facility], where he resides. Patient is wheelchair- bound due to Parkinson's and previous hemorrhagic stroke. Patient reports that he had finished eating breakfast and he was being wheeled to the Activity Room, when he lost consciousness. He denies any prodromal symptoms. Her [facility] staff reported that patient was not breathing during the episode and stated it lasted for 4 to 5 seconds to a minute. The episode was witnessed and staff deny any seizure-like activity, incontinence, or postictal state afterward. The patient stated he didn't realize anything until they were waking him up. The patient also had a similar episode the previous week and was taken to [facility]. That episode also occurred after eating breakfast. At [facility], he was found to have a UTI and he was placed on Cipro. The patient sees Dr. Kilpatrick for cardiology. The patient denies any symptoms of chest pain, dyspnea, orthopnea, or PND. He denies any lightheadedness, dizziness. He denies any lower extremity edema. REVIEW OF SYSTEMS: Constitutional; Denies any recent fever, chills, malaise, or weakness. Eyes; Reports no change in vision. Ears; Reports no change in hearing. ENT; Denies any congestion, epistaxis, or difficulty swallowing. Respiratory; Denies any cough, dyspnea, hemoptysis, or wheezing. Cardiovascular ; Denies any chest pain, palpitations, lightheadedness, or dizziness. He denies any PND. Endocrine; Denies any polydipsia or polyuria. Gastrointestinal; Denies any abdominal pain, constipation, diarrhea, or melena. Genitourinary; Denies any dysuria. Musculoskeletal; Denies any new arthralgia or back pain. Skin; Denies any easy bruising or rash. Neurological; Denies any headaches or dizziness. Psychiatric; Denies any anxiety or depression. Hematological/ Lymphatic; Denies any history of blood clots, easy bleeding, or easy bruising. SOCIAL HISTORY: Denies tobacco abuse. Denies alcohol use. Denies illicit drug use. FAMILY HISTORY: Positive for cancer in father and mother. History of heart disease in mother. History of stroke in mother. ALLERGIES: NO KNOWN DRUG ALLERGIES. HOME MEDICATIONS INCLUDE: Tylenol 325 mg q.i.d. p.r.n. Eliquis 2.5 mg b.i.d. Aspirin 81 mg daily Calcium Carbonate Carbidopa-Levodopa Pradaxa Vitamin D3 Digoxin 125 mcg daily Proscar 5 mg daily Guaifenesin cough syrup Hydrocortisone p.r.n. Hydroxycine p.r.n. Levothyroxine 175 mcg p.o. daily CURRENT MEDICATIONS: Tylenol 500 mg every day Eliquis 2.5 mg daily Aspirin 81 mg daily Sinomet q.i.d. Digoxin 125 mcg daily Guaifenesin 10 mL p.o. q.i.d. Hydrocortisone Imodium p.r.n. Magnesium Citrate 296 mL daily Remeron 15 mg p.o. q.h.s. Hydroxycine 25 mg p.o. t.i.d. Proscar 5 mg p.o. daily Amitiza 8 mcg p.o. b.i.d. Nystatin b.i.d. Levothyroxine 175 mcg per schedule MiraLAX p.r.n. Potassium 10 mEq b.i.d. PHYSICAL EXAMINATION: VITAL SIGNS: Blood pressure 152/82. Pulse 93. He is afebrile. Respirations 18. O2 saturation 96% on room air. GENERAL: Alert and oriented x3. Answers questions appropriately. No acute distress. HEENT: Normocephalic, atraumatic. Extraocular movements are intact. Pupils are equal and round. NECK: Supple without lymphadenopathy, thyromegaly, or bruits. CARDIAC: Irregularly irregular rhythm. No significant murmur was appreciated. LUNGS: Clear to auscultation in all lung [place] without rales, rhonchi, or wheeze. ABDOMEN: Soft, nontender. Bowel sounds present in all four quadrants. EXTREMITIES: No edema. 2+ pulses bilaterally. SKIN: Warm and dry. LABORATORIES: WBC 10.8. Hemoglobin 14.2. Hematocrit 44.5. Platelet count of 265. Sodium 141. Potassium 4.1. Chloride 98. CO2 29. BUN 22. Creatinine 1.2. Glucose 127. Troponins negative x2. ASSESSMENT/PLAN: 1. SYNCOPE: Patient has had two syncopal episodes without warning after eating breakfast at his facility. Echocardiography was performed today. This demonstrated an ejection fraction of 50 of 55%, mild concentric LVH, mild mitral regurgitation, PASP was normal. Telemetry has not demonstrated any arrhythmias. Will plan a 30-day event monitor and have the patient follow-up with Dr. Kilpatrick. Consideration could be given for an implantable loop, if event monitoring doesn't demonstrate any arrhythmias or patient doesn't have a syncopal episode while wearing monitor. 2. ATRIAL FIBRILLATION: Continue Eliquis for CVA prophylaxis. EKG demonstrated atrial fibrillation at a rate of 93 beats per minute with no acute changes. Thank you for the opportunity to participate in this patient's care. Patient to follow-up with Dr. Kilpatrick as outpatient in the next four to six weeks. JOB NUMBER: [id number] MTDD
[2018-08-18] MEDS: MIRTAZAPINE 15 MG TABLET PO SCH (21:43)
[2018-08-18] MEDS: Non-Formulary MISC (Carbidopa/Levodopa [Sinemet Cr 50-200 Tablet] 1 EACH) PO SCH (21:45)
[2018-08-19] MEDS: ACETAMINOPHEN 500 MG TABLET PO PRN (00:04)
[2018-08-19] MEDS: TIZANIDINE HCL 4 MG TABLET PO PRN ×2 (04:48→14:29)
[2018-08-19 06:53] LABS: BASO % 0.5 % (0-6); EOS % 4.2 % (0-6); GRAN % 73.7 % (47-80); LYMPH % 11.2 % (16-45); MEAN CELL VOLUME 90.7 fl (81-97); MEAN CORPUSCULAR HGB CONC 31.9 g/dl (32-36); MEAN PLATELET VOLUME 9.9 fl (7.4-10.4); MONO % 10.4 % (0-9); PLATELET COUNT 255 K/uL (130-400); RED BLOOD COUNT 5.18 M/uL (4.40-5.70); RED CELL DISTRIBUTION WIDTH 13.5 % (11.5-14.5); WHITE BLOOD COUNT W/O DIFF 7.9 K/uL (4.2-12.2)
[2018-08-19] MEDS ORDERED: LEVOTHYROXINE 175 MCG PO SCH (07:00)
[2018-08-19 07:34] LABS: BLOOD UREA NITROGEN 16 mg/dL (8-23); CREATININE 1.1 mg/dL (0.7-1.2); EST GLOMERULAR FILTRATION RATE > 60 mL/min; GLUCOSE,RANDOM 115 mg/dL (74-109)
[2018-08-19] MEDS: POTASSIUM CHLORIDE 10 MEQ TAB PO SCH ×2 (07:56→17:38)
[2018-08-19] MEDS: CARBIDOPA/LEVODOPA 25MG/100MG TABLET PO SCH ×4 (07:56→20:14)
[2018-08-19] MEDS: SIMETHICONE 80 MG TAB.CHEW PO SCH ×3 (09:08→17:38)
[2018-08-19] MEDS: ASPIRIN 81 MG TABEC PO SCH (09:09)
[2018-08-19] MEDS: APIXABAN 2.5MG TABLET PO SCH (09:09)
[2018-08-19] MEDS: Non-Formulary MISC (Finasteride [Proscar] 5 MG) PO SCH (09:09)
[2018-08-19] MEDS: LUBIPROSTONE 8 MCG PO SCH (09:10)
[2018-08-19] MEDS: POLYETHYLENE GLY 17 GM PACKET PO SCH (09:10)
[2018-08-19] MEDS: NYSTATIN 15 GM POWDER TP SCH (09:10)
[2018-08-19] MEDS: DIGOXIN 125 MCG TABLET PO SCH (09:10)
[2018-08-19] MEDS: MAGNESIUM OXIDE 250 MG PO SCH (09:10)
[2018-08-19] MEDS: ZINC OXIDE TP SCH (09:11)
[2018-08-19] MEDS: [UNRECOGNIZED DRUG - OTHER] TP SCH (09:11)
--- NOTE | 2018-08-19 11:56 | Discharge Summary ---
Providers Discharge Summary Date: 08/19/18 Date of admission: 08/16/18 14:45 Attending physician: DEMARCO SALMON Primary care physician: GAIL KEARNEY M.D. Consults: Consult Orders 08/16/18 20:55 Consult - Cardiology NOW Consulting Provider: FIDELINA GONGORA Physician Instructions: Reason For Exam: syncope Does pt have current associate professor computer science?: Other 08/18/18 16:24 Consult - Cardiology NOW Consulting Provider: TRISH JONES Physician Instructions: Reason For Exam: syncope Does pt have current associate professor computer science?: Other Physical Exam - Vital Signs Vital Signs: Vital Signs - Last 24 Hrs Temp Pulse Pulse Resp BP Pulse Ox 08/19/18 09:00 98.1 F 92 H 16 120/68 95 08/19/18 08:38 85 84 20 08/19/18 05:00 97.7 F 84 20 140/84 96 08/19/18 00:00 97.7 F 85 20 148/83 96 08/18/18 21:00 97.9 F 85 90 20 146/88 98 08/18/18 17:00 98.1 F 84 80 16 119/67 98 08/18/18 13:00 98.0 F 92 H 18 138/76 95 - General General Appearance: Alert, Oriented x3, Cooperative, No acute distress Limitations: Altered mental status - Head Head exam: Normal inspection - Eye Eye exam: Normal appearance, PERRL, EOMI Pupils: Normal accommodation - ENT ENT exam: Normal exam, Mucous membranes moist, Normal external ear exam, Normal orophraynx Ear exam: Normal external inspection. negative: External canal tenderness Nasal Exam: Normal inspection. negative: Discharge, Sinus tenderness Mouth exam: Normal external inspection, Tongue normal Teeth exam: Normal inspection. negative: Dental caries Throat exam: Normal inspection. negative: Tonsillar erythema, Tonsillar exudate - Neck Neck exam: Normal inspection, Full ROM. negative: Tenderness - Respiratory Respiratory exam: Normal lung sounds bilaterally. negative: Respiratory distress - Cardiovascular Cardiovascular Exam: Regular rate, Normal heart sounds Peripheral Pulses: 2+: Radial (R), Radial (L), Dorsalis Pedis (R), Dorsalis Pedis (L) - GI/Abdominal GI/Abdominal exam: Soft, Normal bowel sounds. negative: Tenderness - Rectal Rectal exam: Deferred - exam: Deferred, Other (suprapubic catheter) - Extremities Extremities exam: Normal inspection, Full ROM, Normal capillary refill. negative: Tenderness - Back Back exam: Reports: Normal inspection, Full ROM. 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 negative: Normal gait - Psychiatric Psychiatric exam: Normal affect, Normal mood - Skin Skin exam: Dry, Intact, Normal color, Warm Hospitalization - Hospitalization Admission Diagnosis: syncope - Problem List/Discharge Diagnosis (1) Syncope Current Visit: Yes Status: Acute Discharge Diagnosis: Syncope type: unspecified Qualified Code(s): R55 - Syncope and collapse Base Code: R55 - SYNCOPE AND COLLAPSE Comment: 08/19/18: - Syncopal episodes x 2, time not determined. - No seizure-like movements or activity, no post-ictal confusion noted. - Head CT w/o contrast on admission - showed no acute changes, no acute changes on telemetry monitoring. - Cardiology consult recommending holter monitor and follow up with the patient' s Sound Controller Dr. Kilpatrick. - Patient to follow-up with Neurology if all other testing is WNL (2) A-fib Current Visit: Yes Status: Acute Base Code: I48.91 - UNSPECIFIED ATRIAL FIBRILLATION Comment: 08/19/18: Chronic a-fib, managed by associate professor computer science [place] [facility] - Rate controlled on Digoxing 125mcg daily, Anticoagulated on Eliquis 2.5mg daily - telemetry monitor, no new acute changes noted. - Cardiology recommending holter monitor and follow up outpatient within 4-6 weeks. (3) Parkinson disease Current Visit: Yes Status: Acute Base Code: G20 - PARKINSON'S DISEASE Comment: 08/19/18: - On Carbidopa/Levadopa - Follow up with [facility] on discharge. (4) DVT prophylaxis Current Visit: Yes Status: Acute Base Code: [id number] - Comment: 08/19/18: moderate risk due to age, hospitalization, and chronic wheelchair bound status. -Will continue current Eliquis home dosing (5) Full code status Current Visit: Yes Status: Acute Base Code: Z78.9 - OTHER SPECIFIED HEALTH STATUS Comment: 08/19/18: Patient is a full code this admission - Disposition Guarded prognosis. - Hospitalization Course Disposition: Custodial Care Facility Hospital Course: 88 year old male presented to ED after a syncopal episode that occurred at the [facility] facility where he currently resides. 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 Patient reports he had finished eating breakfast and was being wheeled to the activity room when he lost consciousness. Staff report patient was also not breathing during episode, and state it lasted about 45 sec - 1 min. The episode was witnessed and staff deny any seizure-like activity, incontinence, or a post-ictal state afterward. Patient denied any feelings of shortness of breath, chest pain, dizziness, or generalized feelings of being unwell prior to episode. Patient had one previous episode similar to this last Friday. He was taken to [facility] after that event and was found to have a UTI. Patient was started on Cipro at that time. Patient's past medical history includes Parkinson's, a-fib, CVA, and thyroidectomy. Neurologist at [facility] [place] at [facility] PCP: Gail Kearney ED Course: VS: Temp 97.7F, HR 77, RR 18, BP 112/71, Pulse ox 96% CBC WNL, CMP and TSH WNL Head CT negative for acute process UA had small leuks, will continue Ciprofloxacin. 08/17/18: Patient A&O x 4, resting comfortably in bed. Patient has no complaints this morning, states he is feeling at his baseline. Will continue to treat with Cipro for UTI. Echo ordered, last echo reported in 2001. Cardiology consult also placed to further evaluate syncopal episodes. If workup remains negative, will instruct patient to follow-up with neurologist for further testing. 08/18/18: No acute cardiac events and no syncopal episodes documented over the past 24 hours. 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 Urine culture showed mixed brian. 08/19/18: The patient is resting comfortably in bed. He has no new complaints and no cardiac events on the monitor. Cardiology recommendations is for Holter monitor and outpatient management. Procedures: Imaging and X-Rays 08/16/18 10:03 HEAD WO CONTRAST [CT] Stat Cardiology Procedures 08/16/18 10:03 Credit Investigator NOW EKG NOW 08/16/18 20:55 Echo W/CF & Cardiac Doppler ONCE Abnormal Labs: Abnormal Lab Results 08/16/18 08/16/18 08/16/18 Range/Units 09:10 09:10 09:10 MCHC (32-36) g/dl MPV 10.9 H (7.4-10.4) fl Lymphocytes % (16-45) % Monocytes % (0-9) % Lymphocytes 11.0 L (16-45) % Chloride 96 L (98-107) mmol/L Carbon Dioxide 34.0 H (22-29) mmol/L Random Glucose 157 H (74-109) mg/dL Calcium 8.2 L (8.8-10.2) mg/dL Total Protein (6.6-8.7) g/dL Albumin (4.0-5.0) g/dL LDL Cholesterol [place] (0-100) mg/dL HDL Cholesterol (40-60) mg/dL Ur Leukocyte Esterase (NEGATIVE) Digoxin 0.6 L (0.8-2.0) ng/mL 08/16/18 08/17/18 08/17/18 Range/Units Unknown :18 02:18 MCHC 31.9 L (32-36) g/dl MPV (7.4-10.4) fl Lymphocytes % 7.7 L (16-45) % Monocytes % 10.0 H (0-9) % Lymphocytes (16-45) % Chloride (98-107) mmol/L Carbon Dioxide (22-29) mmol/L Random Glucose 127 H (74-109) mg/dL Calcium 7.5 L (8.8-10.2) mg/dL Total Protein (6.6-8.7) g/dL Albumin (4.0-5.0) g/dL LDL Cholesterol [place] (0-100) mg/dL HDL Cholesterol (40-60) mg/dL Ur Leukocyte Esterase Small H (NEGATIVE) Digoxin (0.8-2.0) ng/mL 08/18/18 08/18/18 08/19/18 Range/Units 06:23 06:23 06:38 MCHC 31.6 L 31.9 L (32-36) g/dl MPV (7.4-10.4) fl Lymphocytes % 9.8 L 11.2 L (16-45) % Monocytes % 10.4 H (0-9) % Lymphocytes (16-45) % Chloride (98-107) mmol/L Carbon Dioxide 30.0 H (22-29) mmol/L Random Glucose (74-109) mg/dL Calcium 6.8 L (8.8-10.2) mg/dL Total Protein 6.5 L (6.6-8.7) g/dL Albumin 3.9 L (4.0-5.0) g/dL LDL Cholesterol [place]urd (0-100) mg/dL HDL Cholesterol (40-60) mg/dL Ur Leukocyte Esterase (NEGATIVE) Digoxin (0.8-2.0) ng/mL 08/19/18 08/19/18 Range/Units 06:38 06:38 MCHC (32-36) g/dl MPV (7.4-10.4) fl Lymphocytes % (16-45) % Monocytes % (0-9) % Lymphocytes (16-45) % Chloride (98-107) mmol/L Carbon Dioxide 30.0 H (22-29) mmol/L Random Glucose 115 H (74-109) mg/dL Calcium 7.2 L (8.8-10.2) mg/dL Total Protein (6.6-8.7) g/dL Albumin (4.0-5.0) g/dL LDL Cholesterol [place] 114.0 H (0-100) mg/dL HDL Cholesterol 36 L (40-60) mg/dL Ur Leukocyte Esterase (NEGATIVE) Digoxin (0.8-2.0) ng/mL Discharge Medications - Discharge Medications Home Medications: Ambulatory Orders Acetaminophen [Tylenol] 325 mg PO QID PRN 08/16/18 [Last Taken 2 Days Ago ~08/14] Apixaban [Eliquis] 2.5 mg PO BID 08/16/18 [Last Taken 1 Day Ago ~08/15/18] Aspirin [Aspirin EC] 81 mg PO DAILY 08/16/18 [Last Taken 1 Day Ago ~08/15/18] Calcium Carbonate [Hgad-Gcf-989] 500 mg PO QID 08/16/18 [Last Taken 1 Day Ago ~ 08/15/18] Carbidopa/Levodopa [Carbidopa-Levo 25-100 mg Odt] 2 tab PO QID 08/16/18 [Last Taken 1 Day Ago ~08/15/18] Carbidopa/Levodopa [Sinemet Cr 50-200 Tablet] 1 each PO QPM 08/16/18 [Last Taken 1 Day Ago ~08/15/18] Chlorhexidine Gluconate [Peridex] 480 ml MM BID 08/16/18 [Last Taken 1 Day Ago ~ 08/15/18] Cholecalciferol (Vitamin D3) [Vitamin D3] 2,000 unit PO DAILY 08/16/18 [Last Taken 1 Day Ago ~08/15/18] Digoxin 125 mcg PO DAILY 08/16/18 [Last Taken 1 Day Ago ~08/15/18] Finasteride [Proscar] 5 mg PO DAILY 08/16/18 [Last Taken 1 Day Ago ~08/15/18] Gnp Dairy 3000 3,000 unit PO QHS PRN 08/16/18 [Last Taken Unknown] Guaifenesin/Dextromethorphan [Robafen Dm Cough Liquid] 118 ml PO QID PRN [Last Taken Unknown] Guaifenesin/Dextromethorphan [Robitussin Cough-Chest Dm Liq] 237 ml PO QID PRN 08/16/18 [Last Taken Unknown] Hydrocortisone [Cortisone] 28 gm TP BID PRN 08/16/18 [Last Taken Unknown] Hydroxyzine HCl 25 mg PO TID PRN 08/16/18 [Last Taken Unknown] Lactobacillus Acidophilus [Acidophilus] 1 each PO BID 08/16/18 [Last Taken 1 Day Ago ~08/15/18] Levothyroxine Sodium [Synthroid] 1.5 tab PO DAILY 08/16/18 [Last Taken 2 Days Ago ~08/14/18] Levothyroxine Sodium [Synthroid] 175 mcg PO DAILY 08/16/18 [Last Taken 1 Day Ago ~08/15/18] Loperamide HCl [Immodium] 2 mg PO QID PRN 08/16/18 [Last Taken Unknown] Loperamide HCl [Loperamide] 2 mg PO QID PRN 08/16/18 [Last Taken 1 Day Ago ~] Lubiprostone [Amitiza] 8 mcg PO BID 08/16/18 [Last Taken 1 Day Ago ~08/15/18] Magnesium Citrate [Citrate of Magnesia] 296 ml PO NOW 08/16/18 [Last Taken Unknown] Magnesium Oxide [Magnesium] 250 mg PO DAILY 08/16/18 [Last Taken 1 Day Ago ~] Mirtazapine 15 mg PO QHS 08/16/18 [Last Taken 1 Day Ago ~08/15/18] Nystatin [Nystop] 60 gm TP BID 08/16/18 [Last Taken 1 Day Ago ~08/15/18] Oxymetazoline HCl [Nasal [place]] 30 ml NS BID PRN 08/16/18 [Last Taken 1 Day Ago ~08/15/18] Petrolatum,White [Remedy with Phytoplex Z-Guard] 113 gm TP DAILY 08/16/18 [Last Taken 1 Day Ago ~08/15/18] Polyethylene Glycol 3350 [Miralax] 1 packet PO DAILY 08/16/18 [Last Taken 1 Day Ago ~08/15/18] Polyethylene Glycol 3350 [Miralax] 17 gm PO DAILY PRN 08/16/18 [Last Taken Unknown] Potassium Chloride [Klor-Con] 10 meq PO DAILY 08/16/18 [Last Taken 1 Day Ago ~] Psyllium Husk (with Sugar) [Metamucil Packet] 3.4 gm PO DAILY 08/16/18 [Last Taken 1 Day Ago ~08/15/18] Selenium Sulfide 180 ml TP DAILY PRN 08/16/18 [Last Taken Unknown] Simethicone [Gas Relief] 80 mg PO QID 08/16/18 [Last Taken 1 Day Ago ~08/15/18] Tizanidine HCl [Zanaflex] 2 mg PO QID PRN 08/16/18 [Last Taken 1 Day Ago ~] Zinc Oxide/Petrolatum,White [Jacob Moist Barrier Cream] 99 gm TP BID [Last Taken 1 Day Ago ~08/15/18] Sodium Chloride Nasal [[place] Nasal] 0.5 ml NA Q2H PRN spray 08/19/18 [Last Taken Unknown] Discharge Plan - Discharge Instructions Activity at Discharge: Resume Usual Activities As Tolerated Diet at Discharge: Low Fat, Low Cholesterol, Low Salt Diet Quality Measures - Quality Measures Quality Measures: Atrial Fibrillation & Atrial Flutter: Chronic Anticoagulation Therapy, Advance Directives, Documentation of Current Medications in Medical Record, Elder Maltreatment Screen and Follow-Up Plan, Screening for High Blood Pressure and F/U Documented - Current Medications Quality Measure: Measure #130: Documentation of Current Medications Documentation of Current Medications: <Current Medications Documented/Reviewed> [G1677] - Blood Pressure Screening Quality Measure: Screening for High Blood Pressure and Follow-Up Documented Does Patient Have Any of the Following: Active Dx of HTN Blood Pressure Classification: Pre-Hypertensive BP Reading Systolic Measurement: 152 Diastolic Measurement: 82 Screening for High Blood Pressure: Patient Exclusion, Hx of HTN [G9744] - Atrial Fibrillation and Atrial Flutter Quality Measure: Atrial Fibrillation & Atrial Flutter: Chronic Anticoagulation Therapy Does Patient Have Any of the Following: No CHADS2 Risk Stratification: Prior Stroke/TIA or Systemic Embolism, Age 75 or Greater, Hypertension Risk Stratification Summary: One or more high risk factors OR more than one moderate risk factor exists. [G8972] Anticoagulation Therapy: <Oral anticoagulant Prescribed> [G8967] - Advance Directives Quality Measure: Measure #47: Care Plan Advance Directives Established: No Advance Directives Information Provided To Patient: Already Provided Advance Directives on File: No Living Will: No Power of Stamp Analyst Name: silver sterling Advance Care Planning: <Care Plan/Decision Maker Documented; Discussed & Documented> [1123F] - Elder Abuse Suspicion Index Screening: Elder Abuse Suspicion Index Screening Rely on people for bathing, dressing, shopping, banking, etc: Yes Prevented from getting food, clothes, medication, etc: No Made to feel shamed or threatened by someone: No Forced to sign papers or use money against will: No Feel afraid, touched in ways not wanted or hurt physically: No Poor eye contact, withdrawn, malnourished, cuts or bruises: No Screening Result: Negative result EASI Reference Information: Reyna BARRON, Pretty C, Ayo D, Naman Zelaya.Development and validation of a tool to assist physicians identification of elder abuse: The Elder Abuse Suspicion Index (EASI ). Journal of Elder Abuse and Neglect, 2008; 20 (3): 276-300. - Elder Maltreatment Screen Quality Measures: Elder Maltreatment Screen and Follow-Up Plan Elder Maltreatment Screen: <Negative, No Follow-Up Plan Required> [G8734]
[2018-08-19] MEDS ORDERED: ZINC OXIDE 28.35 GM TUBE TOP ONE (15:35)
--- NOTE | 2018-08-21 23:07 | Cardiology Consult ---
CARDIOLOGY PROGRESS NOTE: DATE: 08/19/2018 Mr. Mcclendon is a very pleasant 88-year-old male with a history of Parkinson's disease for the past eight years as well as previous hemorrhagic CVA and chronic atrial fibrillation, who was admitted to [facility] earlier this week after a syncopal episode. He was evaluated by Cardiology on Friday and recommendation was given for a 30-day event monitor at time of discharge and follow-up with his primary Cardologist, Dr. Kilpatrick. He did undergo an echocardiogram while admitted, which showed preserved LV function and no significant valvular abnormalities. His labs and vital signs have been stable. He is on Eliquis 2.5 mg b.i.d. for CVA prophylaxis for chronic atrial fibrillation and he is on Digoxin 125 mcg daily for rate control. He is wheelchair-bound. He had no prodromal symptoms prior to his syncopal episode. He has no complaints of chest pain or shortness of breath today and has not noticed any lightheadedness or dizziness while he has been admitted. He has had no arrhythmias noted on telemetry while admitted. He is scheduled to have a 48- hour Holter monitor placed at his Cardiology office on Friday and will follow- up with Dr. Kilpatrick on September 03 to review results of Holter monitor. Agree with this plan. He is stable from Cardiac standpoint for discharge. Discussed with attending physician, Dr. Bowden. JOB NUMBER: [id number] MTDD
== END 2018-08-19 20:19 | DRG 312 ==
LOC: ER 09:28 → MEDSURG 14:45
PROVIDERS: ADMIT Internal Medicine; ATTEND Internal Medicine
DX: R55 Syncope and collapse (principal); N39.0 Urinary tract infection, site not specified; G20 Parkinson's disease; I10 Essential (primary) hypertension; I48.91 Unspecified atrial fibrillation; Z79.01 Long term (current) use of anticoagulants; Z86.73 Personal history of transient ischemic attack (TIA), and cerebral infarction without residual deficits; Z85.850 Personal history of malignant neoplasm of thyroid; Z86.14 Personal history of Methicillin resistant Staphylococcus aureus infection
CPT/HCPCS: 70450; 80048; 80053; 80061; 80162; 81001; 84443; 84484; 85025; 85027; 90686; 93005; 93306; 94762; 99223; 99233; 99239; 99285

== ENCOUNTER 2019-03-27 12:19 | Emergency (ER) | payer MEDICARE, BC ==
--- NOTE | 2019-03-27 12:32 | Emergency Department Record ---
History of Present Illness - General Chief Complaint: Fall Injury Stated Complaint: FALL Time Seen by Provider: 03/27/19 12:21 Source: Patient, EMS Mode of Arrival: EMS Limitations: No limitations - History of Present Illness Initial Comments: The patient is here due to slipping out of his chair after falling asleep and possibly bumping his head during the fall. The patient states he woke up when he was sliding out and did not loose consciousness. Since he denies any SHEARER or any neck pain. The patient is on Eliquis. Complaint: Fall Onset/Timin -: Hour(s) Fall From: Chair Place Fall Occurred: group home/SNF Loss of Consciousness: None - Mary Coma Scale Eye Response: (4) Open spontaneously Motor Response: (6) Obeys commands Verbal Response: (5) Oriented [place] Total: 15 - Related Data Home Medications Medication Instructions Recorded Confirmed Last Taken Buspirone HCl [Buspar] 10 mg PO TID PRN 03/27/19 03/27/19 1 Day Ago ~03/26/19 Carbamide Peroxide [Murine Ear 15 ml OT TID 03/27/19 03/27/19 1 Day Ago Drops] ~03/26/19 Lactase [Lactaid] 3,000 unit PO QHS PRN 03/27/19 03/27/19 1 Day Ago ~03/26/19 Previous Rx's Medication Instructions Recorded Sodium Chloride Nasal [[place] Nasal] 0.5 ml NA Q2H PRN spray 08/19/18 Allergies Allergy/AdvReac Type Severity Reaction Status Date / Time No Known Drug Allergies Allergy Verified 03/27/19 12:23 Travel Screening - Travel/Exposure Within Last 30 Days Have you traveled within the last 30 days?: No - Travel/Exposure Within Last Year Have you traveled outside the [place] in the last year?: No - Additonal Travel Details Have you been exposed to anyone with a communicable illness?: No - Travel Symptoms Symptom Screening: None Review of Systems Constitutional: Denies: Chills, Fever Eyes: Denies: Eye discharge ENT: Denies: Congestion Respiratory: Denies: Cough, Dyspnea Cardiovascular: Denies: Arrhythmia, Chest pain Endocrine: Denies: Fatigue Gastrointestinal: Denies: Abdominal pain Genitourinary: Denies: Dysuria Musculoskeletal: Denies: Arthralgia Skin: Denies: Bruising Past Medical History - SOCIAL HISTORY Smoking Status: Never smoker Alcohol Use: None Drug Use: None - RESPIRATORY Hx Respiratory Disorders: No - CARDIOVASCULAR Hx Cardio Disorders: Yes Hx Hypertension: Yes Hx Irregular Heartbeat: Yes Comment:: A-fib - NEURO Hx Neuro Disorders: Yes Hx CVA: Yes (Oct 2010) Hx Parkinson's Disease: Yes (2017) - GI Hx GI Disorders: No - Hx Genitourinary Disorders: Yes Hx Bladder Problem: Yes (Suprapubic catheter) Comment:: post CVA - ENDOCRINE Hx Endocrine Disorders: Yes Hx Thyroid Disease: Yes (thyroidectomy) - MUSCULOSKELETAL Hx Musculoskeletal Disorders: No - PSYCH Hx Psych Problems: No - HEMATOLOGY/ONCOLOGY Hx Hematology/Oncology Disorders: No Family Medical History Any Significant Family History?: No Hx Cancer: Father, Mother, Grandparents Hx Heart Disease: Mother Hx Stroke: Mother Physical Exam - General General Appearance: Alert, Oriented x3, Cooperative, No acute distress ( Presently the patient is lying in the bed doing a crossword puzzle.) - Head Head exam: Atraumatic, Normocephalic, Normal inspection - Eye Eye exam: Normal appearance, PERRL - Neck Neck exam: Normal inspection, Full ROM. negative: Tenderness - Respiratory Respiratory exam: Normal lung sounds bilaterally. negative: Respiratory distress - Cardiovascular Cardiovascular Exam: Regular rate, Normal rhythm, Normal heart sounds - GI/Abdominal GI/Abdominal exam: Soft, Normal bowel sounds. negative: Tenderness - Extremities Extremities exam: Normal inspection, Full ROM, Normal capillary refill. negative: Tenderness - Back Back exam: Reports: Normal inspection - Neurological Neurological exam: Alert, Oriented X3. negative: Altered, Motor sensory deficit - Psychiatric Psychiatric exam: negative: Anxious Course Vital Signs 03/27/19 12:22 Temperature 97.4 F L Pulse Rate 93 H Respiratory 16 Rate Blood Pressure 162/98 Pulse Ox 98 - Reevaluation(s) Reevaluation #1: The patient is doing very well at this time. He denies any significant pain, nausea, vomiting, or visual changes. I did explain the neg head CT and the need for F/U next week for any problems. 03/27/19 13:51 Medical Decision Making - Data Complexity MDM Data: Labs Ordered and/or Reviewed, X-Ray Ordered and/or Reviewed - Lab Data Result diagrams: 03/27/19 12:57 03/27/19 12:57 - Radiology Data Radiology results: Report reviewed (Head CT: Neg for any acute changes.) Disposition Disposition: Discharge Clinical Impression: Fall Qualifiers: Encounter type: initial encounter Qualified Code(s): W19.XXXA - Unspecified fall, initial encounter Disposition: Home, Self-Care Condition: (2) Stable Instructions: Fall Prevention for Older Adults (ED) Additional Instructions: Please continue your regular medicines and see your doctor next week for any problems. Return to the ER for any worsening issues or problems. Forms: Patient Portal Access Time of Disposition: 13:53 Quality - Quality Measures Quality Measures: N/A - Blood Pressure Screening View Details: Yes Does Patient Have Any of the Following: No Blood Pressure Classification: Hypertensive Reading Systolic Measurement: 162 Diastolic Measurement: 98 Screening for High Blood Pressure: < First Hypertensive BP, F/U Documented > [ G8950] First Hypertensive Follow-up Interventions: Referral to alternative/primary care provider.
[2019-03-27 13:07] LABS: HEMATOCRIT 46.6 % (42.0-52.0); HEMOGLOBIN 14.4 gm/dl (14.0-18.0); MEAN CELL VOLUME 92.3 fl (81-97); MEAN CORPUSCULAR HEMOGLOBIN 28.5 pg (27-33); MEAN CORPUSCULAR HGB CONC 30.9 g/dl (32-36); MEAN PLATELET VOLUME 9.9 fl (7.4-10.4); PLATELET COUNT 281 K/uL (130-400); RED BLOOD COUNT 5.05 M/uL (4.40-5.70); WHITE BLOOD COUNT W/O DIFF 8.7 K/uL (4.2-12.2)
[2019-03-27 13:15] LABS: PLATELET ESTIMATE NORMAL (NORMAL)
[2019-03-27 13:19] LABS: INR 1.1; PARTIAL THROMBOPLASTIN TIME 35.6 SECONDS (24.5-39.1); PROTHROMBIN TIME (PATIENT) 10.7 SECONDS (9.5-12.1)
[2019-03-27 13:20] LABS: BLOOD UREA NITROGEN 16 mg/dL (8-23); CREATININE 1.1 mg/dL (0.7-1.2); EST GLOMERULAR FILTRATION RATE > 60 mL/min
[2019-03-27 13:21] LABS: TOTAL PROTEIN 7.1 g/dL (6.6-8.7)
[2019-03-27 13:23] LABS: GLUCOSE,RANDOM 106 mg/dL (74-109)
[2019-03-27 13:25] LABS: ALB/GLOB RATIO 1.4 (1.1-1.8); ALBUMIN 4.1 g/dL (4.0-5.0); ALKALINE PHOSPHATASE 96 U/L (40-129); ALT/SGPT < 5 U/L (<41); AST/SGOT 11 U/L (10.0-50.0)
--- NOTE | 2019-03-30 10:33 | CT SCAN REPORT ---
EXAM: CT SCAN OF THE BRAIN WITHOUT CONTRAST HISTORY: FELL. ON BLOOD THINNERS. LEFT TEMPORAL REGION PAIN. PREVIOUS CVA. TECHNIQUE: Standard CT imaging of the brain was performed in the axial plane without contrast. Additional coronal and sagittal reformatted images were also performed. Comparison: 08/16/18. FINDINGS: There is moderate generalized atrophy. There is a stable area of encephalomalacia involving the superior right frontal parietal region. Chronic small vessel ischemic changes are noted within the periventricular and subcortical white matter at both cerebral hemispheres and appears stable. There is no mass, mass effect, intracranial hemorrhage, visible acute infarct, or abnormal extraaxial fluid. The skull is intact. The orbits, sinuses, and mastoids are normal. IMPRESSION: 1. STABLE HEAD CT WITH NO ACUTE INTRACRANIAL ABNORMALITY. 2. 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 3. MODERATE ATROPHY AND CHRONIC SMALL VESSEL ISCHEMIC CHANGES. JOB NUMBER: [id number] MTDD
== END 2019-03-27 14:27 | disposition home or self-care (01) ==
LOC: ER 12:19
DX: S09.90XA Unspecified injury of head, initial encounter (principal); M79.622 Pain in left upper arm; W07.XXXA Fall from chair, initial encounter; Y92.129 Unspecified place in nursing home as the place of occurrence of the external cause; I10 Essential (primary) hypertension; Z79.01 Long term (current) use of anticoagulants; I48.91 Unspecified atrial fibrillation
CPT/HCPCS: 70450; 80053; 85027; 85610; 85730; 99283; 99284